=== PATIENT | female | born 1945 | race Caucasian/White ===

== ENCOUNTER 2021-02-08 14:01 | Emergency (ER) | payer MEDICARE, SELFPAY ==
[2021-02-08 14:16] VITALS: BP 147/82; PULSE 85; RESP 16; TEMP 36.6; O2SAT 98; BMI 25.8
--- NOTE | 2021-02-08 14:24 | ECG_ITS ---
[facility] Test Date: 2021-02-08 Pat Name: Janett Mcfarland Department: Room: Gender: Female [employer]: : 1945 Requested By: Laura Estes Order Number: [id number] Reading MD: MAITE KEARNEY Measurements Intervals [place] Rate: 73 P: 50 FL: 138 QRS: 61 QRSD: 81 T: 29 QT: 371 QTc: 410 Interpretive Statements SINUS RHYTHM No previous ECG available for comparison Electronically Signed On 02-08-2021 19:57:11 STOP ATTACHER by MAITE KEARNEY [id number]
--- NOTE | 2021-02-08 14:24 | XR_ITS ---
WS: [id number] PORTABLE CHEST HISTORY: weakness COMPARISON: None available. Lungs are clear and well expanded. No pleural effusion or pneumothorax. Cardiac size: Normal. Mediastinum/Aorta: Mild atherosclerosis aorta. No mediastinal widening. No osseous abnormality seen. XR/XR chest 1V portable [id number] IMPRESSION: Unremarkable portable chest.
[2021-02-08 15:03] LABS: Add Urine Microscopic? YES; Bilirubin Urine Neg (Negative); Blood Urine Neg (Negative); Glucose Urine UA Norm (Normal); Ketones Urine Negative (Negative); Leukocyte Esterase Urine 2+ (Negative); Nitrate Urine Negative (Negative); Protein Urine Neg (Negative); Urine Appearance SL Hazy (CLEAR); Urine Color Straw (Yellow); Urobilinogen Urine Norm (Negative); pH Urine 5 (5-7)
[2021-02-08 15:04] LABS: Add Urine Culture? Yes; Bacteria Urine 1+ /hpf; RBC Urine 0-4 /hpf (0-2); Transitional Epi Cells Urine 0-4 /hpf
[2021-02-08 17:06] VITALS: BP 149/74; PULSE 66; RESP 18; O2SAT 96
[2021-02-08 17:46] LABS: Basophils # 0.1 10^3/uL (0.0-0.1); Basophils % 0.8 %; Eosinophils # 0.2 10^3/uL (0.0-0.8); Eosinophils % 2.3 %; Hematocrit 34.5 % (37.0-47.0); Hemoglobin 10.4 g/dL (11.5-15.3); Lymphocytes # 2.1 10^3/uL (0.8-4.8); Lymphocytes % 32.3 %; Mean Corpuscular HGB Conc 30.1 g/dL (30.0-36.0); Mean Corpuscular Hemoglobin 23.5 pg (28.0-34.0); Mean Corpuscular Volume 77.9 fl (81-99); Mean Platelet Volume 11.5 fL (7.4-10.4); Monocytes # 0.5 10^3/uL (0.2-0.9); Monocytes % 7.6 %; Neutrophils # 3.65 10^3/uL (1.8-7.7); Neutrophils % 56.8 %; Nucleated Red Blood Cells % 0 %; Platelet Count 320 10^3/cmm (130-400); Red Blood Count 4.43 10^6/uL (4.1-5.3); Red Cell Distribution Width 15.4 % (12.1-15.1); White Blood Count 6.4 10^3/uL (4.0-10.0)
[2021-02-08 18:06] LABS: Troponin(5th) Baseline 13 ng/L (0-10)
[2021-02-08 18:10] LABS: Alanine Aminotransferase 8 U/L (0-33); Albumin Level 4.7 g/dL (3.5-5.2); Alkaline Phosphatase 79 IU/L (35-105); Aspartate Amino Transferase 13 U/L (0-32); Blood Urea Nitrogen 22 mg/dL (8-23); Calcium 9.2 mg/dL (8.5-10.5); Carbon Dioxide 25 mmol/L (22-29); Chloride 93 mmol/L (98-107); Globulin 2.7 g/dL (1.3-4.6); Glucose 96 mg/dL (65-115); Osmolality Calculated 285 mOsm/kg (285-295); Sodium 136 mmol/L (136-145); Total Bilirubin 0.2 mg/dL (0.15-1.2); Total Protein 7.4 g/dL (6.6-8.7)
--- NOTE | 2021-02-08 20:48 | USCV_ITS ---
Janett Mcfarland Age: 75 Gender: F : 1945 Exam Date: 02/08/2021 21:18 Ordering Phys: Sly Rhodes MD Technologist: Exam Location: [facility] [place] Indication: DYSPNEA BP: 143 / 87 HR: 86 Rhythm: Sinus Technical Quality: Good MEASUREMENTS (Male / Female) Normal Values 2D ECHO LV Diastolic Diameter PLAX 3.9 cm 4.2 - 5.9 / 3.9 - 5.3 cm LV Systolic Diameter PLAX 2.5 cm IVS Diastolic Thickness 1.1 cm 0.6 - 1.0 / 0.6 - 0.9 cm IVS Systolic Thickness 1.5 cm LVPW Diastolic Thickness 0.8 cm 0.6 - 1.0 / 0.6 - 0.9 cm LVPW Systolic Thickness 1.4 cm LVOT Diameter 2.0 cm LV Ejection Fraction 2D Teich 64.5 % LV Ejection Fraction MOD 2C 62.9 % LV Ejection Fraction 2C AL 64.0 % LA Diameter 3.8 cm LA Width 3.2 cm LA Height 3.9 cm RA Width 3.0 cm RA Height 4.8 cm Aorta at Sinotubular Diameter 2.8 cm M-MODE Aortic Annulus Diameter 2.9 cm LA Ao Ratio MM 1.4 MV E Point Septal Separation 1.5 cm DOPPLER AV Peak Velocity 152.0 cm/s LVOT Peak Velocity 118.0 cm/s AV Area Cont Eq vti 2.9 cm squared AV Area Cont Eq pk 2.5 cm squared MV Area PHT 5.0 cm squared Mitral E to A Ratio 0.8 MV E' Velocity 45.0 cm/s Mitral E to MV E' Ratio 7.7 Mitral E to LV E' Lateral Ratio 7.4 Mitral E to LV E' Septal Ratio 8.0 TR Peak Velocity 262.0 cm/s TR Peak Gradient 27.5 mmHg TV Peak E Velocity 97.0 cm/s Right Atrial Pressure 3.0 mmHg Pulmonary Artery Systolic Pressu 30.5 mmHg FINDINGS Left Ventricle Normal left ventricular size, systolic function and wall thickness, with no regional wall motion abnormalities. Left ventricular ejection fraction is estimated at 70 %. Normal diastolic function. Right Ventricle Normal right ventricular size and systolic function. Right ventricular systolic pressure 39 mmHg. Right Atrium Normal right atrial size. Left Atrium Normal left atrial size. Mitral Valve Moderately thickened mitral valve. No mitral valve stenosis. Trace mitral valve regurgitation. Aortic Valve Mildly thickened trileaflet aortic valve. No aortic valve stenosis. No aortic valve regurgitation. Tricuspid Valve Structurally normal tricuspid valve. No tricuspid valve stenosis. Trace tricuspid valve regurgitation. Pulmonic Valve Structurally normal pulmonic valve. No pulmonary valve stenosis. Trace pulmonary valve regurgitation. Pericardium No pericardial effusion. Aorta Normal size aortic root and proximal ascending aorta. CONCLUSIONS 1. Normal left ventricular size, systolic function and wall thickness, with no regional wall motion abnormalities. Left ventricular ejection fraction is estimated at 70 %. Normal diastolic function. 2. Normal right ventricular size and systolic function. 3. No significant valvular abnormality. 4. Mild pulmonary hypertension with pulmonary artery pressure estimated at 39 mm Hg. 5. No prior similar studies to compare. Lilian Berumen MD (Electronically Signed) Final Date: 08 February 2021 22:25 S
--- NOTE | 2021-02-08 21:40 | ED_ITS ---
HPI - General Adult General: Chief complaint: General Medical Stated complaint: DIZZY/WEAK Time Seen by Provider: 02/08/21 20:12 History of Present Illness: HPI narrative: HPI: [75]yo patient w no known PMH presents emergency room with complaints of increasing lightheadedness for the last 3 days. Patient tells me that she has seborrheic keratosis of the left ear and thinks that her ear is popping. In addition, patient tells me that for the last 3 days, she has been coming feeling short of breath and feeling lightheaded. Patient denies any vertical sensation, ear drainage, fever/chills, focal weakness, or chest pain. Patient also denies any post-ictal confusion, tongue biting or bladder/bowel incontinence. Patient denies any prior hx of syncope in the past. No associated symptoms of palpitations or focal weakness right before the incident. No family hx of sudden cardiac or unexplained . Patient denies a hx of smoking, cardiac hx, DM, HLD, or HTN. Onset: 3 days ago Duration: ongoing Location: home Severity: mild/moderate Review of Systems Narrative: Constitutional: No fever, no chills. HEENT: No vision changes CV: No chest pain, no palpitations PULM: No productive cough, no dyspnea. GI: No abdominal pain, no N/V/D. : No Dysuria MSKEL: No muscle pain SKIN: No new rashes, no lesions. NEURO: No headache, no focal weakness. +syncope x 1 episode HEME: No visible bruises PSYCH: Normal mood Physical Exam Narrative: EXAM NARRATIVE: Head: Atraumatic Eyes: PERRL, conjunctiva without injection, eyes tracking ENT: Mucous membrane moist NECK: Supple without lymphadenopathy LUNGS: LCTAB CV: RRR ABDOMEN: Soft, nontender in all quadrants, no guarding or rebound tenderness, no CVA or flank tenderness bilaterally EXTREMITY: Normal ROM SKIN: No rash or erythema NEURO: Mental status: A/Ox3 CN II-XII tested and intact. Sensation intact to sharp/dull differentiation in all extremities. Motor: Normal tone and bulk. No abnormal movements appreciated. Patient ambulates with a steady gait. PSYCH: Cooperative mood and affect Course Vital Signs: Vital signs: Vital Signs Temperature 97.9 F 02/08/21 14:16 Pulse Rate 66 02/08/21 17:06 Respiratory Rate 18 02/08/21 17:06 Blood Pressure 149/74 02/08/21 17:06 Pulse Oximetry 96 02/08/21 17:06 MDM - General Adult MDM Narrative: Medical decision making narrative: [75]yo patient w/ no PMH pre senting to the ED with light-headedness and dyspnea x 3 days. No association with chest pain, palpitations, or focal neurological deficits. HDS Neuro intact. Given history, exam and workup, presentation not consistent with seizures given a short time course, no postictal state, no seizure activity. Low suspicion for acute neurologic catastrophes to include ICH given lack of trauma, risk factors for bleeding diathesis, or neurogenic causes of syncope. Low suspicion for vascular catastrophes to include PE, thoracic aortic dissection, AAA rupture. Presentation not consistent with acute life threatening arrhythmia, structural heart disease, electrical conduction abnormalities, or ACS. Workup: CBC, BMP, EKG, Troponin x 2, CV echo, telemtry monitoring Intervention: Serial reevaluation, PO challenge EKG showing regular sinus rhythm at HT of 73. Normal axis. No ST elevations/depressions to suggest coronary occlusion. Normal NC, QRS, QT intervals. EKG: No e/o STEMI. No evidence of Brugada?s sign, delta wave, epsilon wave, significantly prolonged QTc, HOCM or malignant arrhythmia. [10:30pm] On reassessment, patient denies any syncope or near syncope episodes in the ER. Telemetry without any dysrhythmia. Patient ambulated without issues. I performed shared decision-making with patient regarding admission versus discharge today. I explained to the patient that we currently do not have any beds in the hospital currently and the patient will need to be either transferred to another facility for evaluation cardiac evaluation or in an ED hold. Although the patient does not have cardiac risk factors, whoever given her age and her symptoms that this might still be cardiac related despite normal delta troponins, echo, EKG, and telemetry. Patient and daughter (Lima) upon hearing the bed situation elect for the patient go home with close follow up with a coupling machine operator. Since patient wants to leave, I offered an additional 6hr troponin for evaluation to ensure this is not cardiac related. However, patient's daughter has to work at 4am in the morning and elects to take her mother home now. I have discussed the case with Dr. Berumen who reviewed patient's echo and agrees to see patient in clinic on Sunday. I explained the risks of leaving the hospital today including lethal arrythemia, [place], and even . Patient and daughter verbalize understanding of these discussed risks and elect for the alternative of following up closely with PCP and Dr. Berumen. Patient verbalizes understanding to return for any worsening symptoms including chest pain, dyspnea, fatigue, arm pain/jaw pain/back pain or any new or concerning issues. I have told pateint to call us if she does not hear about her cardiology appointment on Sunday. CT/CTA imagines are negative today. Hemoglobin of 10.4, which was discussed with patient who tells me she has a known hx of anemia and has been taking iron pills at home. Disposition: Discharge. Patient is at baseline at this time. Return precautions expressed and understood in person. Advised follow up with a primary care provider or clinic physician in the next 24-48 hours. Given return instructions for any new or concerning symptoms including chest pain, focal neurological deficits, dyspnea, or any new or concerning findings. Lab Data: Labs: Lab Results 02/08/21 02/08/21 02/08/21 14:22 17:03 17:03 WBC 6.4 10^3/uL 10^3/ uL (4.0-10.0) RBC 4.43 10^6/uL 10^6 /uL (4.1-5.3) Hgb 10.4 g/dL L g/dL (11.5-15.3) Hct 34.5 % L % (37.0-47.0) MCV 77.9 fl L fl (81-99) MCH 23.5 pg L pg (28.0-34.0) MCHC 30.1 g/dL g/dL (30.0-36.0) RDW 15.4 % H % (12.1-15.1) Plt Count 320 10^3/cmm 10^3 /cmm (130-400) MPV 11.5 fL H fL (7.4-10.4) Neut % (Auto) 56.8 % % Lymph % (Auto) 32.3 % % Meeker % (Auto) 7.6 % % Eos % (Auto) 2.3 % % Baso % (Auto) 0.8 % % Neut # (Auto) 3.65 10^3/uL 10^3 /uL (1.8-7.7) Lymph # (Auto) 2.1 10^3/uL 10^3/ uL (0.8-4.8) Meeker # (Auto) 0.5 10^3/uL 10^3/ uL (0.2-0.9) Eos # (Auto) 0.2 10^3/uL 10^3/ uL (0.0-0.8) Baso # (Auto) 0.1 10^3/uL 10^3/ uL (0.0-0.1) Nucleated RBC % (a uto) 0 % % Nucleated RBCs # 0.0 /100WBC /100W BC Sodium 136 mmol/L mmol/L (136-145) Potassium 4.0 mmol/L mmol/L (3.5-5.1) Chloride 93 mmol/L L mmol/ L (98-107) Carbon Dioxide 25 mmol/L mmol/L (22-29) Anion Gap 22.0 H (5-19) BUN 22 mg/dL mg/dL (8-23) Creatinine 0.9 mg/dL mg/dL (0.5-0.9) GFR Calculation Not Reportable Glucose 96 mg/dL mg/dL (65-115) Calculated Osmolal ity 285 mOsm/kg mOsm/ kg (285-295) Calcium 9.2 mg/dL mg/dL (8.5-10.5) Total Bilirubin 0.2 mg/dL mg/dL (0.15-1.2) AST 13 U/L U/L (0-32) ALT 8 U/L U/L (0-33) Alkaline Phosphata se 79 IU/L IU/L (35-105) Troponin T Baselin e Troponin T 120 Min [place] Delta Troponin T Total Protein 7.4 g/dL g/dL (6.6-8.7) Albumin 4.7 g/dL g/dL (3.5-5.2) Globulin 2.7 g/dL g/dL (1.3-4.6) Urine Color Straw (Yellow) Urine Appearance Sl hazy (CLEAR) Urine pH 5 (5-7) Ur Specific Gravit y 1.010 (1.005-1.030) Urine Protein Neg (Negative) Urine Glucose (UA) Norm (Normal) Urine Ketones Negative (Negative) Urine Blood Neg (Negative) Urine Nitrate Negative (Negative) Urine Bilirubin Neg (Negative) Urine Urobilinogen Norm mg/dL mg/dL (Negative) Ur Leukocyte Melly ase 2+ H (Negative) Urine RBC 0-4 /hpf H /hpf (0-2) Urine WBC 5-10 /hpf H /hpf (0-5) Ur Squamous Epith Cells 5-10 /hpf H /hpf (0-5) Ur Transition Epit h Cell 0-4 /hpf /hpf Amorphous Sediment Not Reportable Urine Bacteria 1+ /hpf H /hpf (NONE) SARS-CoV-2 Ag (Rap id) 02/08/21 02/08/21 02/08/21 17:03 19:33 21:20 WBC RBC Hgb Hct MCV MCH MCHC RDW Plt Count MPV Neut % (Auto) Lymph % (Auto) Meeker % (Auto) Eos % (Auto) Baso % (Auto) Neut # (Auto) Lymph # (Auto) Meeker # (Auto) Eos # (Auto) Baso # (Auto) Nucleated RBC % (a uto) Nucleated RBCs # Sodium Potassium Chloride Carbon Dioxide Anion Gap BUN Creatinine GFR Calculation Glucose Calculated Osmolal ity Calcium Total Bilirubin AST ALT Alkaline Phosphata se Troponin T Baselin e 13 ng/L H ng/L (0-10) Troponin T 120 Min [place] 12.80 ng/L H ng/L (0-10) Delta Troponin T -0.20 ABS# L ABS# (0-10) Total Protein Albumin Globulin Urine Color Urine Appearance Urine pH Ur Specific Gravit y Urine Protein Urine Glucose (UA) Urine Ketones Urine Blood Urine Nitrate Urine Bilirubin Urine Urobilinogen Ur Leukocyte Melly ase Urine RBC Urine WBC Ur Squamous Epith Cells Ur Transition Epit h Cell Amorphous Sediment Urine Bacteria SARS-CoV-2 Ag (Rap id) Negative (Negative) Imaging Data^: Other Imaging: Radiologist's impression: [address] [id number] Scan ReportSigned Patient: Janett Mcfarland #: [id number]: 6Acct#:[id number]/[id number] ex: 75 / FADM Date: 02/08/21Loc: ERRoom/Bed:Attending Dr: Ordering Provider/Ordering MD: Sly Rhodes MD Date of Service: 02/08/21 Procedure(s): CT angio headneck* [id number] Accession Number(s): [id number] Report Number: [id number] PROCEDURE INFORMATION: Exam: CT Angiography Head With Contrast, Arteriography Exam date and time: 02/08/2021 9:41 PM Age: 75 years old Clinical indication: Dizziness and giddiness and weakness; Patient HX: C/O dizziness with bilateral leg weakness. Recent BP medication change. ; Additional info: Light-headedness TECHNIQUE: Imaging protocol: Computed tomography angiography of the head with contrast. Exam focused on the arteries. 3D rendering (Not supervised by radiologist): MIP and/or 3D reconstructed images were created by the technologist. Radiation optimization: All CT scans at this facility use at least one of these dose optimization techniques: automated exposure control; mA and/or kV adjustment per patient size (includes targeted exams where dose is matched to clinical indication); or iterative reconstruction. Contrast material: OMNI 350; Contrast volume: 95 ml; Contrast route: INTRAVENOUS (IV); COMPARISON: CT head wo con* [id number] 02/08/2021 9:57 PM RADIATION DOSE METRICS: Total DLP (mGy-cm): 1359.17 FINDINGS: ANTERIOR CIRCULATION: Right internal carotid artery: Unremarkable. Intracranial segment is patent with no significant stenosis. No aneurysm. Right middle cerebral artery: Unremarkable. No occlusion or significant stenosis. No aneurysm. Right anterior cerebral artery: Unremarkable. No occlusion or significant stenosis. No aneurysm. Left internal carotid artery: Unremarkable. Intracranial segment is patent with no significant stenosis. No aneurysm. Left middle cerebral artery: Unremarkable. No occlusion or significant stenosis. No aneurysm. Left anterior cerebral artery: The left A1 segment is small which should an incidental finding. POSTERIOR CIRCULATION: Right vertebral artery: Unremarkable. No occlusion or significant stenosis. No aneurysm. Left vertebral artery: Unremarkable. No occlusion or significant stenosis. No aneurysm. Basilar artery: Unremarkable. No occlusion or significant stenosis. No aneurysm. Right posterior cerebral artery: Unremarkable. No occlusion or significant stenosis. No aneurysm. Left posterior cerebral artery: Hypoplastic left P1 segment which should be incidental Left posterior communicating artery: The left posterior communicating artery is widely patent. Other arteries: The distal vertebral arteries are patent with the left side slightly dominant. Brain: Incidental calcification in the left cerebellum. Sulcal widening is an age related change. Cerebral ventricles: No ventriculomegaly. Bones/joints: Unremarkable. No acute fracture. Soft tissues: Unremarkable. PROCEDURE INFORMATION: Exam: CT Angiography Neck With Contrast Exam date and time: 02/08/2021 9:41 PM Age: 75 years old Clinical indication: Dizziness and giddiness and weakness; Patient HX: C/O dizziness with bilateral leg weakness. Recent BP medication change. ; Additional info: Light-headedness TECHNIQUE: Imaging protocol: Computed tomography angiography of the neck with contrast. 3D rendering (Not supervised by radiologist): MIP and/or 3D reconstructed images were created by the technologist. Radiation optimization: All CT scans at this facility use at least one of these dose optimization techniques: automated exposure control; mA and/or kV adjustment per patient size (includes targeted exams where dose is matched to clinical indication); or iterative reconstruction. Contrast material: OMNI 350; Contrast volume: 95 ml; Contrast route: INTRAVENOUS (IV); COMPARISON: CT head wo con* [id number] 02/08/2021 9:57 PM RADIATION DOSE METRICS: Total DLP (mGy-cm): 1359.17 FINDINGS: Right common carotid artery: No stenosis. No dissection or occlusion. Right internal carotid artery: Scattered calcified plaques in the proximal right internal carotid artery without measurable stenosis. Right external carotid artery: No occlusion or stenosis of the origin. Left common carotid artery: No stenosis. No dissection or occlusion. Left internal carotid artery: Calcified plaque in the left carotid bifurcation without measurable stenosis. Left external carotid artery: No occlusion or stenosis of the origin. Right vertebral artery: No stenosis. No dissection or occlusion. Left vertebral artery: No stenosis. No dissection or occlusion. Aorta: The aortic arch is mildly atherosclerotic. Thyroid: There are scattered cystic nodules in both lobes of thyroid up to 1.2 cm. Given the patient's age and nodule multiplicity, follow-up is not recommended. Soft tissues: Normal. No significant soft tissue swelling. Bones/joints: Mild chronic degenerative changes in the cervical spine especially at C5-C6 and C6-C7. Lungs: Linear scars are present in both lung apices. CT/CT angio headneck* [id number] IMPRESSION: No significant intracranial vascular findings. IMPRESSION: Patent carotid and vertebral arteries. COMMENTS: Consistent with the [employer]'s Incidental Findings Committee white paper (J Am Speedy Radiol 2015): In patients aged 35 years and older with an incidental thyroid nodule equal to or greater than 1.[address], MRI or extrathyroidal US, further evaluation with dedicated thyroid US is recommended for patients with normal life expectancy and without comorbidities. For smaller nodules without suspicious features, no further evaluation or follow up is recommended. REFERENCES: NASCET CRITERIA. The degree of internal carotid artery stenosis is based on NASCET criteria. Normal is no stenosis. Mild is less than 50% stenosis. Moderate is 50-69% stenosis. Severe is 70% to 99% stenosis. Total occlusion is no detectable patent lumen. Dictated By:Anitha Mataigned By:Anitha Mata Date/Time:02/08/212234DD/ [address] [id number] Scan ReportSigned Patient: Janett Mcfarland #: [id number]: 1945cct#:[id number]/Sex: 75 / FADM Date: 02/08/21Loc: ERRoom/Bed:Attending Dr: Ordering Provider/Ordering MD: Sly Rhodes MD Date of Service: 02/08/21 Procedure(s): CT head wo con* [id number] Accession Number(s): [id number] Report Number: [id number] PROCEDURE INFORMATION: Exam: CT Head Without Contrast Exam date and time: 02/08/2021 9:41 PM Age: 75 years old Clinical indication: Dizziness and weakness, extremity; Patient HX: C/O dizziness with bilateral leg weakness. Recent BP medication change. ; Additional info: Light-headedness TECHNIQUE: Imaging protocol: Computed tomography of the head without contrast. Radiation optimization: All CT scans at this facility use at least one of these dose optimization techniques: automated exposure control; mA and/or kV adjustment per patient size (includes targeted exams where dose is matched to clinical indication); or iterative reconstruction. COMPARISON: No relevant prior studies available. RADIATION DOSE METRICS: Total DLP (mGy-cm): 773.06 FINDINGS: Brain: No acute intracranial hemorrhage or mass effect. There is mild decreased attenuation in the periventricular white matter, likely from microvascular disease. No definite acute infarct by CT. MRI could be more sensitive/specific for detection, as clinically directed. Very small 3 mm nonspecific calcification in the left cerebellar hemisphere. Cerebral ventricles: Ventricle size is normal for age. Paranasal sinuses: Included paranasal sinuses are essentially clear. Mastoid air cells: No significant acute finding. Vasculature: Vascular calcifications in the internal carotid arteries. Bones/joints: No definite acute skull fracture. CT/CT head wo con* [id number] IMPRESSION: 1. No acute intracranial hemorrhage or mass effect. 2. Changes of microvascular disease. 3. No definite acute infarct by CT, see above. 4. Other findings discussed above. Dictated By:Danish Zarate MDSigned By:Danish Zarate MDSigned Date/Time:02/08/21 2234DD/ [address] [id number] ReportSigned Patient: Janett Mcfarland #: [id number]: 1945cct#:[id number]/Sex: 75 / FADM Date: 02/08/21Loc: ERRoom/Bed:Attending Dr: Ordering Provider/Ordering MD: Laura Estes Date of Service: 02/08/21 Procedure(s): XR chest 1V portable [id number] Accession Number(s): [id number] Report Number: [id number] WS: [id number] PORTABLE CHEST HISTORY: weakness COMPARISON: None available. Lungs are clear and well expanded. No pleural effusion or pneumothorax. Cardiac size: Normal. Mediastinum/Aorta: Mild atherosclerosis aorta. No mediastinal widening. No osseous abnormality seen. XR/XR chest 1V portable [id number] IMPRESSION: Unremarkable portable chest. Dictated By:Sabi Magana DOSigned By:Sabi Magana DOSigned Date/Time:02/08/21 1450DD/ [address] [id number] ReportSigned Patient: Janett Mcfarland #: [id number]: [id number]#:[id number]/Sex: 75 / FADM Date: 02/08/21Loc: ERRoom/Bed:Attending Dr: Ordering Provider/Ordering MD: Sly Rhodes MD Date of Service: 02/08/21 Procedure(s): CV. echo complete* [id number] Accession Number(s): [id number] Report Number: [id number] Janett Mcfarland Age: 75 Gender: F : 1945 Exam Date: 02/08/2021 21:18 Ordering Phys: Sly Rhodes MD Technologist: [place] [facility] [place]: DYSP[place]A BP: 143 / 87 HR: 86 Rhythm: Sinus Technical Quality: Good MEASUREMENTS (Male / Female) Normal Values 2D ECHO LV Diastolic Diameter PLAX 3.9 cm 4.2 - 5.9 / 3.9 - 5.3 cm LV Systolic Diameter PLAX 2.5 cm IVS Diastolic Thickness 1.1 cm 0.6 - 1.0 / 0.6 - 0.9 cm IVS Systolic Thickness 1.5 cm LVPW Diastolic Thickness 0.8 cm 0.6 - 1.0 / 0.6 - 0.9 cm LVPW Systolic Thickness 1.4 cm LVOT Diameter 2.0 cm LV Ejection Fraction 2D Teich 64.5 % LV Ejection Fraction MOD 2C 62.9 % LV Ejection Fraction 2C AL 64.0 % LA Diameter 3.8 cm LA Width 3.2 cm LA Height 3.9 cm RA Width 3.0 cm RA Height 4.8 cm Aorta at Sinotubular Diameter 2.8 cm M-MODE Aortic Annulus Diameter 2.9 cm LA Ao Ratio MM 1.4 MV E Point Septal Separation 1.5 cm DOPPLER AV Peak Velocity 152.0 cm/s LVOT Peak Velocity 118.0 cm/s AV Area Cont Eq vti 2.9 cm squared AV Area Cont Eq pk 2.5 cm squared MV Area PHT 5.0 cm squared Mitral E to A Ratio 0.8 MV E' Velocity 45.0 cm/s Mitral E to MV E' Ratio 7.7 Mitral E to LV E' Lateral Ratio 7.4 Mitral E to LV E' Septal Ratio 8.0 TR Peak Velocity 262.0 cm/s TR Peak Gradient 27.5 mmHg TV Peak E Velocity 97.0 cm/s Right Atrial Pressure 3.0 mmHg Pulmonary Artery Systolic Pressu 30.5 mmHg FINDINGS Left Ventricle Normal left ventricular size, systolic function and wall thickness, with no regional wall motion abnormalities. Left ventricular ejection fraction is estimated at 70 %. Normal diastolic function. Right Ventricle Normal right ventricular size and systolic function. Right ventricular systolic pressure 39 mmHg. Right Atrium Normal right atrial size. Left Atrium Normal left atrial size. Mitral Valve Moderately thickened mitral valve. No mitral valve stenosis. Trace mitral valve regurgitation. Aortic Valve Mildly thickened trileaflet aortic valve. No aortic valve stenosis. No aortic valve regurgitation. Tricuspid Valve Structurally normal tricuspid valve. No tricuspid valve stenosis. Trace tricuspid valve regurgitation. Pulmonic Valve Structurally normal pulmonic valve. No pulmonary valve stenosis. Trace pulmonary valve regurgitation. Pericardium No pericardial effusion. Aorta Normal size aortic root and proximal ascending aorta. CONCLUSIONS 1. Normal left ventricular size, systolic function and wall thickness, with no regional wall motion abnormalities. Left ventricular ejection fraction is estimated at 70 %. Normal diastolic function. 2. Normal right ventricular size and systolic function. 3. No significant valvular abnormality. 4. Mild pulmonary hypertension with pulmonary artery pressure estimated at 39 mm Hg. 5. No prior similar studies to compare. Lilian Berumen MD (Electronically Signed) Final Date: 08 February 2021 22:25 S Discharge Plan Discharge Patient Disposition: Home Clinical Impression: Light headedness, Dyspnea Condition: Stable Discharge Orders: Discharge ED (Routine); Ordered 02/08/21 Ordered By: Sly Rhodes Referrals: Stephanie Pond, SENIOR MEDICAL BILLING SPECIALIST [Primary Care Provider] - Discharge Diet: Advance as tolerated Discharge Activity: Resume usual activity Patient Instructions: Dyspnea (ED) Activity Restrictions/Additional Instructions: Come back to the emergency room if your chest pain worsens, have any fever or chills, worsening shortness of breath, worsening exertional lightheadedness, or any new or concerning complaints. Please call ER phone number to ensure your appointment with your coupling machine operator on Sunday Please call Dr. Berumen's office for your appointment on Sunday: [phone] Coding Level of Care Code ED Er Medical Technician for Daniel Amezquita
[2021-02-08 21:54] LABS: SARS Covid-2 Antigen Negative (Negative)
[2021-02-08] MEDS: iohexol 350 mg/mL 100 mL Btl IV (22:01)
[2021-02-08 22:57] VITALS: BP 156/80; PULSE 86; O2SAT 98
[2021-02-09 15:12] LABS: Coronavirus Test Green County Not Detected
--- NOTE | 2021-02-09 16:57 | PC.NURSE ---
Patient notified of negative COVID-19 test
--- NOTE | 2021-02-10 09:18 | PC.NURSE ---
Informed pt of Negative COVID results
--- NOTE | 2021-02-10 12:03 | DCPLANNER ---
event sales manager had message to schedule a follow up appointment for patient with [facility]. event sales manager called [facility], spoke with Radha, gave clinic patients information. A follow up appointment was scheduled for Sunday, February 11, 2021 at 10:[address] Berumen. event sales manager called patients daughter and gave her the appointment information.
--- NOTE | 2021-02-25 11:43 | DCPLANNER ---
Patient had a follow up appointment scheduled for 02.11.21 with [facility] - patient did attend appointment.
== END 2021-02-08 23:01 | disposition home or self-care (01) ==
PROVIDERS: Physician Assistant; Emergency Provider Emergency Medicine; PCP Nurse Practitioner Family
DX: R42 Dizziness and giddiness (principal); R06.00 Dyspnea, unspecified; Z20.822 Contact with and (suspected) exposure to COVID-19
CPT/HCPCS: 70450; 70496; 70498; 71045; 80053; 81001; 84484; 85025; 87086; 87426; 87635; 93005; 93306; 99284; Q9967

== ENCOUNTER → 2021-10-10 13:22 | Outpatient (BNVA) | payer MEDICARE, SELFPAY | PROVIDERS: PCP Family Medicine; Visit Provider Internal Medicine Cardiovascular Disease | DX: I47.1 Supraventricular tachycardia (principal); I10 Essential (primary) hypertension; Z87.891 Personal history of nicotine dependence | CPT/HCPCS: 99213 ==

== ENCOUNTER → 2021-12-20 09:20 | Outpatient (BNVA) | payer MEDICARE, SELFPAY | PROVIDERS: PCP Family Medicine; Visit Provider Nurse Practitioner Family | DX: G25.81 Restless legs syndrome (principal); I10 Essential (primary) hypertension; Z23 Encounter for immunization | CPT/HCPCS: 80053; 80061; 84443 ==

== ENCOUNTER → 2022-02-07 14:24 | Outpatient (BNVA) | payer MEDICARE, SELFPAY | PROVIDERS: PCP Family Medicine; Visit Provider Nurse Practitioner Family | DX: G25.81 Restless legs syndrome (principal); D64.9 Anemia, unspecified; I10 Essential (primary) hypertension; E78.5 Hyperlipidemia, unspecified | CPT/HCPCS: 80053; 80061; 85025 ==

== ENCOUNTER → 2022-05-23 11:39 | Outpatient (BNVA) | payer MEDICARE, SELFPAY | PROVIDERS: PCP Nurse Practitioner Family; Visit Provider Nurse Practitioner Family | DX: E55.9 Vitamin D deficiency, unspecified (principal); R25.2 Cramp and spasm; I10 Essential (primary) hypertension | CPT/HCPCS: 80053; 82306 ==

== ENCOUNTER 2023-03-28 09:08 | Outpatient (CLI) | payer MEDICARE, SELFPAY ==
--- NOTE | 2023-03-28 10:15 | USCV_ITS ---
Janett Mcfarland Age: 77 Gender: F : 1945 Exam Date: 03/28/2023 09:44 Ordering Phys: Sara Arguelles Technologist: DEUCE [place] [facility] [place]ication: DIZZINESS Risk Factors: Previous Vascular Surgery: Right Brachial BP: / Left Brachial BP: / Right Left Velocity (cm/s) Spectral Plaque Velocity (cm/s) Spectral Plaque Syst/Diast Broadening Syst/Diast Broadening 84.70/ 14.00 Prox CCA 89.70 / 16.20 71.50/ 16.30 Mid CCA 94.80 / 17.10 64.60/ 17.40 Distal CCA 82.00 / 17.90 58.80/ 11.20 Prox ICA 41.90 / 8.50 74.40/ 22.10 Mid ICA 80.00 / 23.30 67.40/ 16.40 Distal ICA 83.10 / 28.70 176.40 ECA 142.00 0.88 ICA/CCA 0.88 Antegrade Vertebral Antegrade 52.10/ 12.00 cm/s 59.00/ 15.50 cm/s Tri Subclavian Tri 145.7 210.5 0 0 CONCLUSIONS Right ICA stenosis <50%. Left ICA stenosis <50%. Normal antegrade Doppler flow noted in the right vertebral artery. Normal antegrade Doppler flow noted in the left vertebral artery. Keny Rudd MD (Electronically Signed) Final Date: 28 March 2023 10:14 S
== END 2023-03-28 09:09 | disposition home or self-care (01) ==
LOC: RAD 09:08
PROVIDERS: PCP Nurse Practitioner Family; Visit Provider Nurse Practitioner Family
DX: R42 Dizziness and giddiness (principal); I65.23 Occlusion and stenosis of bilateral carotid arteries
CPT/HCPCS: 93880

== ENCOUNTER → 2023-06-18 13:30 | Outpatient (BNVA) | payer MEDICARE, SELFPAY | PROVIDERS: PCP Nurse Practitioner Family; Visit Provider Nurse Practitioner Family | DX: R53.83 Other fatigue (principal); I10 Essential (primary) hypertension; D50.8 Other iron deficiency anemias | CPT/HCPCS: 80061; 84439; 84443; 85025 ==